=== PATIENT | male | born 1965 | race Caucasian/White ===

== ENCOUNTER → 2020-06-18 | Outpatient (CLI) | payer OTHER ==
--- NOTE | 2020-06-18 09:53 | RAD ---
EXAM: 3 views left knee DATE: 06/18/2020 12:00 AM INDICATION: Reason: LEFT KNEE PAIN, NKI / Spl. Instructions: / History: COMPARISON: No Prior FINDINGS: Suprapatellar enthesopathy. No evidence of acute fracture or dislocation. Joint spaces are preserved. Trace tricompartmental osteophytes. No knee joint effusion. IMPRESSION: 1. No evidence of acute fracture or dislocation. 2. Suprapatellar enthesopathy 3. Mild left knee joint osteoarthritis. Electronically signed by: Luciano Edwards MD (06/18/2020 9:51 AM) [id number]
== END ==
LOC: DXRAD 09:23
PROVIDERS: ATTEND Physician Assistant
DX: M17.12 Unilateral primary osteoarthritis, left knee (principal); M76.52 Patellar tendinitis, left knee
CPT/HCPCS: 73562